=== PATIENT | male | born 1950 | race Native Hawaiian/Other Pacific Islander ===

== ENCOUNTER 2017-02-17 08:40 | Inpatient (IN) | payer OTHER ==
[2017-02-17 11:01] LABS: Basophils % (Auto) 0.1 % (0.0-1.8); Eosinophils % (Auto) 0.2 % (0.0-4.3); Hematocrit 29.7 % (35.5-45.6); Hemoglobin 9.4 gm/dl (11.8-15.2); Lymphocytes # (Auto) 0.8 K/mm3 (1.2-5.4); Lymphocytes % (Auto) 7.1 % (13.4-35.0); Mean Corpuscular HGB Conc 32 % (32-34); Mean Corpuscular Volume 74 fl (84-94); Monocytes # (Auto) 0.5 K/mm3 (0.0-0.8); Monocytes % (Auto) 4.6 % (0.0-7.3); Platelet Count 381 K/mm3 (140-440); Red Blood Count 4.03 M/mm3 (3.65-5.03); Red Cell Distribution Width 18.8 % (13.2-15.2)
[2017-02-17 11:09] LABS: Calcium 9.2 mg/dL (8.4-10.2)
[2017-02-17 11:14] LABS: Mean Corpuscular Hemoglobin 23 pg (28-32)
[2017-02-17] MEDS ORDERED: NACL 0.9% 1000 ML 1,000 ML IV ONE (11:25)
[2017-02-17 11:50] LABS: Bacteria,Urine 1+ /HPF (Negative); Bilirubin,Urine NEG (Negative); Blood,Urine LG (Negative); Color,Urine Yellow (Yellow); Nitrite,Urine POS (Negative); Protein,Urine <15 mg/dL mg/dL (Negative); Urobilinogen,Urine < 2.0 mg/dL (<2.0)
[2017-02-17] MEDS ORDERED: ROCEPHIN/NS 1 GM/50 ML 1 GM/50 ML BAG IV ONE (12:05)
[2017-02-17 12:08] LABS: Alanine Aminotransferase 13 units/L (7-56); Albumin 4.1 g/dL (3.9-5)
--- NOTE | 2017-02-17 12:10 | Emergency Department Report ---
ED General Adult HPI - General Chief complaint: Urogenital-Male Stated complaint: URINE RETENTION Time Seen by Provider: 02/17/17 10:36 Source: patient Mode of arrival: Stretcher Limitations: No Limitations - History of Present Illness Initial comments: The patient is a type 2 insulin-dependent diabetic who has recently stopped taking his diabetic medicine because as his family states he has not been able to eat or urinate. Patient states his last De La Cruz catheter was removed approximately one year ago at [place]. It appears that he has not followed up with urologist. When asked if he has been previously diagnosed with cancer he states no and [place]. However, he would appear to be an unreliable historian and apparently medically noncompliant. He states that he has not been able to urinate at all today and was just dribbling yesterday. -: days(s), week(s) Location: abdomen (suprapubic discomfort associated with urinary retention) Severity scale (0 -10): 0 Consistency: constant Improves with: none Worsens with: none Associated Symptoms: denies: chest pain, cough, diaphoresis, fever/chills, shortness of breath, syncope, weakness - Related Data Allergies Allergy/AdvReac Type Severity Reaction Status Date / Time No Known Allergies Allergy Unverified 02/17/17 09:07 ED Review of Systems ROS: Stated complaint: URINE RETENTION Other details as noted in HPI Comment: All other systems reviewed and negative Genitourinary: as per HPI ED Past Medical Hx - Past Medical History Hx Hypertension: Yes Hx Diabetes: Yes Additional medical history: enlarged prostate - Surgical History Past Surgical History?: No - Social History Smoking Status: Never Smoker Substance Use Type: None ED Physical Exam - General Limitations: No Limitations General appearance: alert, in no apparent distress - Head Head exam: Present: atraumatic, normocephalic - Eye Eye exam: Present: normal appearance. Absent: scleral icterus - ENT ENT exam: Present: mucous membranes moist - Neck Neck exam: Present: normal inspection - Respiratory Respiratory exam: Present: normal lung sounds bilaterally. Absent: respiratory distress - Cardiovascular Cardiovascular Exam: Present: regular rate, normal rhythm. Absent: systolic murmur, diastolic murmur, rubs, gallop - GI/Abdominal GI/Abdominal exam: Present: soft, distended, normal bowel sounds, organomegaly ( bladder is nearly up to the umbilicus). Absent: tenderness (the abdomen is not elsewhere tender other than the distended bladder area.), guarding, rebound, rigid - Rectal Rectal exam: Present: deferred - Extremities Exam Extremities exam: Present: normal inspection - Back Exam Back exam: Present: normal inspection - Neurological Exam Neurological exam: Present: alert, oriented X3, CN II-XII intact. Absent: motor sensory deficit - Psychiatric Psychiatric exam: Present: normal affect, normal mood - Skin Skin exam: Present: warm, dry, intact, normal color. Absent: rash ED Course Vital Signs 02/17/17 02/17/17 08:54 10:31 Temperature 98.2 F 98.1 F Pulse Rate 89 76 Respiratory 22 16 Rate Blood Pressure 144/75 Blood Pressure 123/79 [Left] O2 Sat by Pulse 100 100 Oximetry - Reevaluation(s) Reevaluation #1: Nursing state that they were unable to pass a De La Cruz catheter. They had attempted to place a red rubber catheter. When I attempted to advance it is advanced without difficulty and the patient's bladder decompressed. I did asked nursing to find a coud catheter. At this point, I am awaiting this catheter to be replaced. I do not think that it should be difficult. I have advised nursing to empty the patient's bladder first. 02/17/17 12:08 Reevaluation #2: Patient appears to have a urinary tract infection. He has uncontrolled diabetes with a slightly elevated anion gap and potassium level. He will be given IV insulin and IV fluids and ceftriaxone. He has a PSA of 25+. I have referred him to Dr. Mccarthy of the hospitalist service for further care and reevaluation. 02/17/17 12:10 ED Medical Decision Making - Lab Data Result diagrams: 02/17/17 10:40 02/17/17 10:44 Laboratory Results - last 24 hr 02/17/17 02/17/17 02/17/17 10:40 10:44 10:44 WBC 11.2 H RBC 4.03 Hgb 9.4 L Hct 29.7 L MCV 74 L MCH 23 L MCHC 32 RDW 18.8 H Plt Count 381 Lymph % (Auto) 7.1 L [place] % (Auto) 4.6 Eos % (Auto) 0.2 Baso % (Auto) 0.1 Lymph # 0.8 L [place] # 0.5 Eos # 0.0 Baso # 0.0 Seg Neutrophils % 88.0 H Seg Neutrophils # 9.8 H Sodium 134 L Potassium 5.3 H Chloride 98.0 Carbon Dioxide 20 L Anion Gap 21 BUN 22 H Creatinine 1.3 Estimated GFR 55 BUN/Creatinine Ratio 17 Glucose 521 H* Calcium 9.2 Total Bilirubin AST ALT Alkaline Phosphatase Total Protein Albumin Albumin/Globulin Ratio Prostate Specific Ag 25.85 H Urine Color Urine Turbidity Urine pH Ur Specific [place] Urine Protein Urine Glucose (UA) Urine Ketones Urine Blood Urine Nitrite Urine Bilirubin Urine Urobilinogen Ur Leukocyte Esterase Urine WBC (Auto) Urine RBC (Auto) Urine Bacteria (Auto) 02/17/17 02/17/17 11:35 11:41 WBC RBC Hgb Hct MCV MCH MCHC RDW Plt Count Lymph % (Auto) [place] % (Auto) Eos % (Auto) Baso % (Auto) Lymph # [place] # Eos # Baso # Seg Neutrophils % Seg Neutrophils # Sodium Potassium Chloride Carbon Dioxide Anion Gap BUN Creatinine Estimated GFR BUN/Creatinine Ratio Glucose Calcium Total Bilirubin 0.40 AST 16 ALT 13 Alkaline Phosphatase 88 Total Protein 7.3 Albumin 4.1 Albumin/Globulin Ratio 1.3 Prostate Specific Ag Urine Color Yellow Urine Turbidity Clear Urine pH 7.0 Ur Specific [place] 1.016 Urine Protein <15 mg/dl Urine Glucose (UA) >=500 Urine Ketones Tr Urine Blood Lg Urine Nitrite Pos Urine Bilirubin Neg Urine Urobilinogen < 2.0 Ur Leukocyte Esterase Neg Urine WBC (Auto) 6.0 Urine RBC (Auto) 90.0 Urine Bacteria (Auto) 1+ Critical care attestation.: If time is entered above; I have spent that time in minutes in the direct care of this critically ill patient, excluding procedure time. ED Disposition Clinical Impression: Bladder outlet obstruction, Prostate cancer, Hyperkalemia Hyperglycemia due to type 2 diabetes mellitus Qualifiers: Diabetes mellitus terminal worker insulin use: with terminal worker use Qualified Code(s): E11.65 - Type 2 diabetes mellitus with hyperglycemia; Z79.4 - intermediate accountant (current ) use of insulin; Z79.4 - intermediate (current) use of insulin; Z79.4 - intermediate (current) use of insulin; Z79.4 - intermediate (current) use of insulin Disposition: OP ADMIT IP TO THIS HOSP Is pt being admited?: Yes Does the pt Need Aspirin: Yes Condition: Stable Instructions: Diabetes Mellitus Type 2 in Adults (ED) Referrals: SANDER BARRETO MD [Primary Care Provider] - 3-5 Days Time of Disposition: 12:12
[2017-02-17] MEDS ORDERED: BABY ASPIRIN PO ONE (12:12)
[2017-02-17 12:14] LABS: Bilirubin,Direct < 0.2 mg/dL (0-0.2)
[2017-02-17] MEDS ORDERED: cefTRIAXone 1 GM in NACL 0.9% 20 ML IV ONE (12:15)
--- NOTE | 2017-02-17 13:02 | History and Physical Report ---
History of Present Illness Chief complaint: My dad juanito west History of present illness: 66 YO Male with HTN, DM, BPH, Noncompliance presents to ED for evaluation. Pt unable to provide history, but daughter is at bedside and provides history. Pt daughter states that patient has reported difficulty with urination and that he has not been ablu to urinate for over 1 day, and recently stopped taking his diabetic medicine because he has lost his appetite. No reports of fever, chills, CP, Palpitation, NVD, syncope, or recrnt ill contacts. Pt seen and evaluted in ED and found to have urinary retention secondary to BPH, as well as serum glucose above 500. Pt treated with bladder catheterization, as well as insulin therapy and admitted to medical floor. Past History Past Medical History: diabetes, hypertension Past Surgical History: No surgical history, Other (reviewed) Social history: single, Lives alone. denies: smoking, alcohol abuse, prescription drug abuse Family history: hypertension Medications and Allergies Allergies Allergy/AdvReac Type Severity Reaction Status Date / Time No Known Allergies Allergy Unverified 02/17/17 09:07 Home Medications Medication Instructions Recorded Confirmed Last Taken Type Insulin Lispro [Humalog] 100 unit SQ ACHS 02/17/17 02/17/17 Unknown History Lisinopril [Prinivil] 10 mg PO QDAY 02/17/17 02/17/17 Unknown History Rivaroxaban [Xarelto Starter Pack] 15 mg PO BID 02/17/17 02/17/17 Unknown History Rosuvastatin (Nf) [Crestor] 20 mg PO QHS 02/17/17 02/17/17 Unknown History metFORMIN 1,000 mg PO BID 02/17/17 02/17/17 Unknown History Review of Systems ROS unobtainable: due to mental status (Due to language barrier, and noncooperation) Exam - Constitutional Vitals: Temp Pulse Resp BP Pulse Ox 98.1 F 75 16 118/64 100 02/17/17 10:31 02/17/17 12:25 02/17/17 12:25 02/17/17 12:25 02/17/17 12:25 General appearance: Present: mild distress - EENT Eyes: Present: PERRL ENT: hearing intact, clear oral mucosa - Neck Neck: Present: supple, normal ROM - Respiratory Respiratory effort: normal Respiratory: bilateral: CTA - Extremities Extremities: pulses symmetrical, No edema Peripheral Pulses: within normal limits - Abdominal General gastrointestinal: Present: soft, tender. Absent: hepatomegaly, splenomegaly Localized gastrointestinal: tender: suprapubic Male genitourinary: Present: normal - Integumentary Integumentary: Present: clear, warm, dry - Musculoskeletal Musculoskeletal: generalized weakness - Neurologic Neurologic: CNII-XII intact, moves all extremities Results - Labs CBC & Chem 7: 02/17/17 10:40 02/17/17 10:44 Labs: Abnormal lab results 02/17/17 02/17/17 02/17/17 Range/Units 10:40 10:44 10:44 WBC 11.2 H (4.5-11.0) K/mm3 Hgb 9.4 L (11.8-15.2) gm/dl Hct 29.7 L (35.5-45.6) % MCV 74 L (84-94) fl MCH 23 L (28-32) pg RDW 18.8 H (13.2-15.2) % Lymph % (Auto) 7.1 L (13.4-35.0) % Lymph # 0.8 L (1.2-5.4) K/mm3 Seg Neutrophils % 88.0 H (40.0-70.0) % Seg Neutrophils # 9.8 H (1.8-7.7) K/mm3 Sodium 134 L (137-145) mmol/L Potassium 5.3 H (3.6-5.0) mmol/L Carbon Dioxide 20 L (22-30) mmol/L BUN 22 H (9-20) mg/dL Glucose 521 H* (75-100) mg/dL Prostate Specific Ag 25.85 H (0.00-4.00) ng/mL Assessment and Plan - Patient Problems (1) Diabetes Current Visit: Yes Status: Acute Plan to address problem: ADA diet, insulin, accu check, hgb A1c, (2) UTI (urinary tract infection) Current Visit: Yes Status: Acute Qualifiers: Encounter type: initial encounter Plan to address problem: IV abx, monitor uop q shift, place navarro catheter, (3) BPH (benign prostatic hyperplasia) Current Visit: Yes Status: Acute Qualifiers: Lower urinary tract symptom detail: urinary retention Plan to address problem: Navarro catheter placement, PSA, outpatient urology f/u for TURP/repeat prostate biopsy (4) Bladder outlet obstruction Current Visit: Yes Status: Acute Plan to address problem: navarro catheter placement, outpatient urology f/u for Cysto and possible biopsy (5) DVT prophylaxis Current Visit: Yes Status: Acute
[2017-02-17] MEDS ORDERED: NACL 0.45% 1,000 ML IV SCH (16:00)
[2017-02-17] MEDS ORDERED: RIVAROXABAN 15 MG PO SCH (22:00)
[2017-02-17] MEDS ORDERED: NON-FORMULARY (Rosuvastatin (Nf) 20 MG) PO SCH (22:00)
[2017-02-18] MEDS ORDERED: D50W (25GM) Syringe IV PRN (07:30)
[2017-02-18] MEDS: XARELTO PO SCH ×2 (08:52→17:18)
[2017-02-18] MEDS: cefTRIAXone 1 GM in NACL 0.9% 20 ML IV SCH (09:53)
[2017-02-18] MEDS: ZESTRIL PO SCH (10:15)
[2017-02-18] MEDS: NOVOLOG SUB-Q SCH ×3 (12:21→21:54)
--- NOTE | 2017-02-18 16:56 | Progress Note ---
Assessment and Plan Assessment and Plan - Patient Problems (1) Diabetes Current Visit: Yes Status: Acute Plan to address problem: ADA diet, insulin, accu check, hgb A1c, (2) UTI (urinary tract infection) Current Visit: Yes Status: Acute Qualifiers: Encounter type: initial encounter Plan to address problem: IV abx, monitor uop q shift, place navarro catheter, (3) BPH (benign prostatic hyperplasia) Current Visit: Yes Status: Acute Qualifiers: Lower urinary tract symptom detail: urinary retention Plan to address problem: Navarro catheter placement, PSA, outpatient urology f/u for TURP/repeat prostate biopsy (4) Bladder outlet obstruction Current Visit: Yes Status: Acute Plan to address problem: navarro catheter placement, outpatient urology f/u for Cysto and possible biopsy (5) DVT prophylaxis Current Visit: Yes Status: Acute Subjective Date of service: 02/18/17 Principal diagnosis: Uncontrolled DM Interval history: Sx better Objective - Constitutional Vitals: Vital Signs - 12hr 02/18/17 02/18/17 02/18/17 06:06 07:32 10:00 Temperature 98.6 F 99.6 F Pulse Rate 70 66 Respiratory 20 18 18 Rate Blood Pressure 114/67 109/63 O2 Sat by Pulse 97 98 98 Oximetry 02/18/17 10:15 Temperature Pulse Rate 73 Respiratory Rate Blood Pressure 132/64 O2 Sat by Pulse Oximetry General appearance: Present: no acute distress, well-nourished - EENT Eyes: PERRL, EOM intact ENT: hearing intact, clear oral mucosa Ears: bilateral: normal - Neck Neck: supple, normal ROM - Respiratory Respiratory effort: normal Respiratory: bilateral: CTA - Breasts Breasts: normal - Cardiovascular Heart rate: 78 Rhythm: regular Heart Sounds: Present: S1 & S2. Absent: gallop, rub Extremities: no ischemia, pulses intact, pulses symmetrical, No edema, normal color, Full ROM - Gastrointestinal General gastrointestinal: Present: soft, non-tender, non-distended, normal bowel sounds - Genitourinary Male genitourinary: normal - Integumentary Integumentary: clear, warm, dry - Musculoskeletal Musculoskeletal: 1, strength equal bilaterally - Neurologic Neurologic: moves all extremities - Psychiatric Psychiatric: memory intact, appropriate mood/affect, intact judgment & insight - Labs CBC & Chem 7: 02/17/17 10:40 02/17/17 10:44 Labs: Abnormal lab results 02/17/17 02/17/17 02/18/17 Range/Units 14:36 17:03 08:08 POC Glucose 341 H 245 H 174 H (70-105) 02/18/17 Range/Units 11:57 POC Glucose 229 H (70-105)
[2017-02-19] MEDS: NOVOLOG SUB-Q SCH ×4 (00:02→17:36)
[2017-02-19] MEDS: XARELTO PO SCH ×2 (07:42→16:40)
[2017-02-19] MEDS: cefTRIAXone 1 GM in NACL 0.9% 20 ML IV SCH (09:16)
[2017-02-19] MEDS: ZESTRIL PO SCH (09:28)
--- NOTE | 2017-02-19 14:32 | Discharge Summary ---
<ALYSA ALVARADO - Last Filed: 02/20/17 07:43> Providers - Providers Date of Admission: 02/17/17 12:27 Date of discharge: 02/20/17 Attending physician: BRAULIO GA Primary care physician: SANDER BARRETO Hospitalization Reason for admission: difficulty to urinating Condition: Good Hospital course: Patient is a 66 years old male with past medical history of HTN , DM, BPH, Noncompliance presents to the Emergency department for chefi complaints of difficulty with urination. Patient was diagnosed with diabetes mellitus,UTI (urinary tract infection), BPH (benign prostatic hyperplasia) and Bladder outlet obstruction. He was treated with IV fluid, insulin and IV antibiotics. Patient completed a full course of antibiotic; no further need of antibiotic. Patient clinically improved. Patient was advised to follow up with urology within a week of discharge. Discharge Diagnosed Diabetes UTI (urinary tract infection) BPH (benign prostatic hyperplasia) Bladder outlet obstruction Disposition: TO HOME OR SELFCARE Time spent for discharge: 33 minutes Core Measure Documentation - Palliative Care Palliative Care/ Comfort Measures: Not Applicable - Core Measures Any of the following diagnoses?: none Exam - Physical Exam Narrative exam: Confused but his baseline per family - Constitutional Vitals: Temp Pulse Resp BP Pulse Ox 98.5 F 64 20 108/64 99 02/19/17 07:23 02/19/17 10:00 02/19/17 10:00 02/19/17 09:28 02/19/17 10:00 General appearance: Present: no acute distress - EENT Eyes: Present: PERRL - Neck Neck: Present: supple - Respiratory Respiratory effort: normal Respiratory: bilateral: CTA - Cardiovascular Rhythm: regular Heart Sounds: Present: S1 & S2 - Abdominal General gastrointestinal: Present: soft, non-tender Male genitourinary: Present: deferred - Rectal Rectal Exam: deferred - Integumentary Integumentary: Present: clear, warm, dry - Psychiatric Psychiatric: appropriate mood/affect - Neurologic Neurologic: moves all extremities - Allied Health Allied health notes reviewed: nursing Plan Diet: low fat, low cholesterol, low salt Follow up with: SANDER BARRETO MD [Primary Care Provider] - 3-5 Days REYNA QUIÑONEZ MD [Staff Physician] - 7 Days <BRAULIO GA - Last Filed: 02/20/17 09:45> Providers - Providers Date of Admission: 02/17/17 12:27 Attending physician: BRAULIO GA Primary care physician: SANDER BARRETO Hospitalization Hospital course: I saw and evaluated the patient. I agree with the findings and the plan of care as documented in the Nurse Practitioner's~note, with the following corrections and additions. Exam - Constitutional Vitals: Temp Pulse Resp BP Pulse Ox 98.5 F 69 20 122/68 99 02/19/17 07:23 02/19/17 15:26 02/19/17 10:00 02/19/17 15:26 02/19/17 15:26
[2017-02-19 16:12] VITALS: BP 122/68
== END 2017-02-19 18:35 | disposition home or self-care (01) | DRG 638 ==
LOC: ED 08:40 → 4A 12:27 → 2B-ACE 13:28
PROVIDERS: ADMIT Internal Medicine; ATTEND Hospitalist
DX: E11.65 Type 2 diabetes mellitus with hyperglycemia (principal); N39.0 Urinary tract infection, site not specified; C61 Malignant neoplasm of prostate; N32.0 Bladder-neck obstruction; E87.5 Hyperkalemia; N40.1 Benign prostatic hyperplasia with lower urinary tract symptoms; R33.8 Other retention of urine; I10 Essential (primary) hypertension; Z60.2 Problems related to living alone; Z82.49 Family history of ischemic heart disease and other diseases of the circulatory system; Z79.4 Long term (current) use of insulin
CPT/HCPCS: 36415; 80048; 80074; 81001; 82010; 82805; 82962; 84153; 85025; 87076; 87086; 87186; 96361; 96374; 96375; 96376; A9270-GY; J0696; J1815; J7030